=== PATIENT | male | born 2000 | race Caucasian/White ===

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

== ENCOUNTER 2020-04-08 16:15 | Emergency (ER) | payer MEDICAID ==
[~2020-04-08] VITALS: Ht 165.1 cm; Wt 50.0 kg
[2020-04-08 17:37] VITALS: BP 111/64
== END 2020-04-08 17:40 | disposition home or self-care (01) ==
LOC: EMS 16:17
DX: M54.2 Cervicalgia (principal); R51 Headache
CPT/HCPCS: Z7502